=== PATIENT | female | born 1935 | race Caucasian/White ===

== ENCOUNTER 2019-08-24 11:15 | Inpatient (IN) | payer OTHER, BC ==
[~2019-08-24] VITALS: Ht 147.3 cm; Wt 75.3 kg
[2019-08-24 11:28] VITALS: BP 112/63
[2019-08-24] MEDS ORDERED: MEMA10TA PO (11:37)
[2019-08-24] MEDS ORDERED: PRAV40TA1 PO (11:37)
[2019-08-24] MEDS ORDERED: LOSA25TA32 PO (11:37)
[2019-08-24] MEDS ORDERED: QUET25TA PO (11:37)
[2019-08-24] MEDS ORDERED: METF500T2 PO (11:37)
[2019-08-24] MEDS ORDERED: LEVO0.029 PO (11:37)
[2019-08-24] MEDS ORDERED: DONE10TA10 PO (11:37)
[2019-08-24] MEDS ORDERED: CALC-1236 PO (11:37)
[2019-08-24 12:49] LABS: BASOPHILS % (AUTO) 0.5 % (0.0-2.0); EOSINOPHILS # (AUTO) 0.1 K/uL (0-0.4); EOSINOPHILS % (AUTO) 1.9 % (0.0-4.0); HEMATOCRIT 41.5 % (36-48); HEMOGLOBIN 13.6 g/dL (12.0-16.0); LYMPHOCYTES # (AUTO) 1.2 K/uL (2.5-16.5); LYMPHOCYTES % (AUTO) 18.8 % (20.5-51.1); MEAN CORPUSCULAR HEMOGLOBIN 32 pg (27-31); MEAN CORPUSCULAR HGB CONC 33 g/dL (33-37); MEAN CORPUSCULAR VOLUME 97.1 fL (80-94); MONOCYTES # (AUTO) 0.3 K/uL (0.8-1.0); MONOCYTES % (AUTO) 4.4 % (1.7-9.3); NEUTROPHILS # (AUTO) 4.6 K/uL (1.8-7.7); NEUTROPHILS % (AUTO) 74.4 % (42.2-75.2); PLATELET COUNT (AUTO) 222 K/uL (140-450); RED BLOOD CELL COUNT(AUTO) 4.27 MIL/uL (4.20-5.40); RED CELL DISTRIBUTION WIDTH 14.1 % (11.6-13.7); WHITE BLOOD COUNT (AUTO) 6.1 K/uL (4.8-10.8)
[2019-08-24 13:09] LABS: ANION GAP 13.7 (8-16); CHLORIDE 105 mmol/L (98-107); CREATININE 0.8 mg/dL (0.6-1.3); GLUCOSE 123 mg/dL (74-106); POTASSIUM 3.7 mmol/L (3.5-5.1); SODIUM SERUM 144 mmol/L (136-145); UREA NITROGEN, BLOOD 13 mg/dL (7-18)
[2019-08-24 13:15] LABS: ALBUMIN 3.3 g/dL (3.4-5.0); ASPARTATE AMINOTRANSFERASE 15 U/L (15-37); TOTAL BILIRUBIN 0.6 mg/dL (0.0-1.0)
[2019-08-24] MEDS ORDERED: NACL 0.9% 1,000 ML IV ONE (13:45)
[2019-08-24 14:15] LABS: APPEARANCE,URINE SL CLOUDY (CLEAR); BILIRUBIN,URINE NEGATIVE (NEGATIVE); BLOOD, URINE TRACE-I (NEGATIVE); COLOR,URINE YELLOW (YELLOW); LEUKOCYTE ESTERASE ,URINE 1+ (NEGATIVE); NITRITE, URINE POSITIVE (NEGATIVE); UGLUCOSE NEGATIVE (NEGATIVE)
[2019-08-24] MEDS ORDERED: ACETAMINOPHEN 325 MG TAB PO PRN (14:25)
[2019-08-24] MEDS ORDERED: ONDANSETRON 4 MG/2 ML VIAL IVP PRN (14:25)
[2019-08-24] MEDS ORDERED: HYDROcodone/APAP 7.5/325 MG 1 TAB PO PRN (14:25)
[2019-08-24 14:26] LABS: RBC,URINE 0-5 /HPF (0-5)
[2019-08-24 14:27] LABS: WBC,URINE 16-25 (MOD) /HPF (0-5)
[2019-08-24 15:10] VITALS: BP 136/67
[2019-08-24 15:16] LABS: MAGNESIUM 1.6 mg/dL (1.8-2.4); PHOSPHORUS 3.6 mg/dL (2.5-4.9); THYROID STIMULATING HORMONE 3.86 uIU/mL (0.34-3.74)
[2019-08-24] MEDS: DOCUSATE SODIUM 100 MG GELCAP PO SCH (20:59)
[2019-08-24] MEDS ORDERED: MECLIZINE 25 MG TAB PO PRN (22:05)
[2019-08-24] MEDS ORDERED: MEDICATION REC. PHARMACY CONS. 1 EA MISC MC PRN (22:05)
[2019-08-24] MEDS ORDERED: MELATONIN 3 MG TAB PO PRN (22:05)
[2019-08-24] MEDS ORDERED: DEXTROSE 50% 50 ML SYR IVP PRN (22:20)
[2019-08-24] MEDS ORDERED: INSULIN LISPRO SLIDING SCALE 100 UNITS/ML VIAL SUBQ PRN (22:20)
[2019-08-24] MEDS ORDERED: MAGNESIUM OXIDE 400 MG TAB PO SCH (23:00)
[2019-08-24] MEDS ORDERED: cefTRIAXone 1,000 MG VIAL ONE (23:06)
[2019-08-25] VITALS: BP 100/57
[2019-08-25] MEDS: LEVOTHYROXINE 0.025 MG TAB PO SCH (05:43)
[2019-08-25] MEDS: BLOOD GLUCOSE MONITORING 1 DEV DEV FS SCH ×4 (05:44→20:46)
[2019-08-25 06:34] LABS: BASOPHILS % (AUTO) 0.8 % (0.0-2.0); EOSINOPHILS # (AUTO) 0.2 K/uL (0-0.4); EOSINOPHILS % (AUTO) 2.9 % (0.0-4.0); HEMATOCRIT 36.6 % (36-48); HEMOGLOBIN 12.2 g/dL (12.0-16.0); LYMPHOCYTES # (AUTO) 1.5 K/uL (2.5-16.5); LYMPHOCYTES % (AUTO) 28.7 % (20.5-51.1); MEAN CORPUSCULAR HEMOGLOBIN 32 pg (27-31); MEAN CORPUSCULAR HGB CONC 33 g/dL (33-37); MEAN CORPUSCULAR VOLUME 97.1 fL (80-94); MONOCYTES # (AUTO) 0.4 K/uL (0.8-1.0); MONOCYTES % (AUTO) 6.8 % (1.7-9.3); NEUTROPHILS # (AUTO) 3.2 K/uL (1.8-7.7); NEUTROPHILS % (AUTO) 60.8 % (42.2-75.2); PLATELET COUNT (AUTO) 193 K/uL (140-450); RED BLOOD CELL COUNT(AUTO) 3.77 MIL/uL (4.20-5.40); RED CELL DISTRIBUTION WIDTH 13.8 % (11.6-13.7); WHITE BLOOD COUNT (AUTO) 5.3 K/uL (4.8-10.8)
[2019-08-25 08:00] VITALS: BP 105/53
[2019-08-25 08:42] LABS: ANION GAP 13.2 (8-16); CARBON DIOXIDE 25.4 mmol/L (21-32); CHLORIDE 108 mmol/L (98-107); CREATININE 0.7 mg/dL (0.6-1.3); GLUCOSE 106 mg/dL (74-106); POTASSIUM 3.6 mmol/L (3.5-5.1); SODIUM SERUM 143 mmol/L (136-145); UREA NITROGEN, BLOOD 13 mg/dL (7-18)
[2019-08-25] MEDS: QUEtiapine FUMARATE 25 MG TAB PO SCH ×2 (08:42→20:42)
[2019-08-25] MEDS: DOCUSATE SODIUM 100 MG GELCAP PO SCH ×2 (08:42→20:43)
[2019-08-25] MEDS: MEMANTINE 10 MG TAB PO SCH ×2 (08:42→20:43)
[2019-08-25] MEDS: metFORMIN 500 MG TAB PO SCH (08:42)
[2019-08-25] MEDS: FAMOTIDINE 20 MG TAB PO SCH (08:43)
[2019-08-25 08:47] LABS: MAGNESIUM 1.7 mg/dL (1.8-2.4); PHOSPHORUS 3.2 mg/dL (2.5-4.9)
[2019-08-25 08:48] LABS: CHOL/HDL RATIO 2.7 (1-4.5)
[2019-08-25] MEDS ORDERED: LOSARTAN 25 MG TAB PO SCH (09:00)
[2019-08-25] MEDS ORDERED: MAGNESIUM OXIDE 400 MG TAB PO SCH (13:30)
[2019-08-25 16:00] VITALS: BP 118/58
[2019-08-25] MEDS ORDERED: DONEPEZIL 10 MG TAB PO SCH (21:00)
[2019-08-26] VITALS: BP 110/60
[2019-08-26] MEDS: LEVOTHYROXINE 0.025 MG TAB PO SCH (06:02)
[2019-08-26] MEDS: BLOOD GLUCOSE MONITORING 1 DEV DEV FS SCH ×2 (06:14→11:20)
[2019-08-26 07:36] LABS: BASOPHILS % (AUTO) 0.9 % (0.0-2.0); EOSINOPHILS # (AUTO) 0.2 K/uL (0-0.4); EOSINOPHILS % (AUTO) 4.5 % (0.0-4.0); HEMATOCRIT 38.9 % (36-48); HEMOGLOBIN 12.9 g/dL (12.0-16.0); LYMPHOCYTES # (AUTO) 1.5 K/uL (2.5-16.5); LYMPHOCYTES % (AUTO) 35.4 % (20.5-51.1); MEAN CORPUSCULAR HEMOGLOBIN 32 pg (27-31); MEAN CORPUSCULAR HGB CONC 33 g/dL (33-37); MEAN CORPUSCULAR VOLUME 97.7 fL (80-94); MONOCYTES # (AUTO) 0.3 K/uL (0.8-1.0); MONOCYTES % (AUTO) 7.5 % (1.7-9.3); NEUTROPHILS # (AUTO) 2.2 K/uL (1.8-7.7); NEUTROPHILS % (AUTO) 51.7 % (42.2-75.2); PLATELET COUNT (AUTO) 194 K/uL (140-450); RED BLOOD CELL COUNT(AUTO) 3.98 MIL/uL (4.20-5.40); RED CELL DISTRIBUTION WIDTH 14.1 % (11.6-13.7); WHITE BLOOD COUNT (AUTO) 4.2 K/uL (4.8-10.8)
[2019-08-26 07:54] LABS: ANION GAP 12.2 (8-16); CARBON DIOXIDE 27.7 mmol/L (21-32); CHLORIDE 108 mmol/L (98-107); CREATININE 0.7 mg/dL (0.6-1.3); GLUCOSE 128 mg/dL (74-106); POTASSIUM 3.9 mmol/L (3.5-5.1); SODIUM SERUM 144 mmol/L (136-145); UREA NITROGEN, BLOOD 14 mg/dL (7-18)
[2019-08-26 08:00] VITALS: BP 99/40
[2019-08-26 08:00] LABS: MAGNESIUM 1.9 mg/dL (1.8-2.4); PHOSPHORUS 3.2 mg/dL (2.5-4.9)
[2019-08-26] MEDS: DOCUSATE SODIUM 100 MG GELCAP PO SCH (08:16)
[2019-08-26] MEDS: MEMANTINE 10 MG TAB PO SCH (08:17)
[2019-08-26] MEDS: FAMOTIDINE 20 MG TAB PO SCH (08:18)
[2019-08-26] MEDS: metFORMIN 500 MG TAB PO SCH (08:18)
[2019-08-26] MEDS: QUEtiapine FUMARATE 25 MG TAB PO SCH (08:18)
== END 2019-08-26 16:55 | disposition home or self-care (01) | DRG 74 ==
LOC: MED 11:15 → MMU 14:22
PROVIDERS: ADMIT General Practice; ATTEND General Practice
DX: G90.8 Other disorders of autonomic nervous system (principal); E44.1 Mild protein-calorie malnutrition; E83.42 Hypomagnesemia; E03.9 Hypothyroidism, unspecified; E66.9 Obesity, unspecified; I10 Essential (primary) hypertension; F03.90 Unspecified dementia, unspecified severity, without behavioral disturbance, psychotic disturbance, mood disturbance, and anxiety; E78.5 Hyperlipidemia, unspecified; E11.9 Type 2 diabetes mellitus without complications; Z68.34 Body mass index [BMI] 34.0-34.9, adult; Z71.3 Dietary counseling and surveillance; Z79.84 Long term (current) use of oral hypoglycemic drugs; Z79.899 Other long term (current) drug therapy; Z90.49 Acquired absence of other specified parts of digestive tract
CPT/HCPCS: 36415; 70450; 71045; 80048; 80053; 81001; 82948; 83036; 83735; 83880; 84100; 84443; 84484; 85025; 85610; 85730; 87040; 87081; 87086; 87186; 92610; 93005; 93880; 96360; 99285; J0696; J1644; J1815; J7030; J7060; Q0092